=== PATIENT | male | born 1975 | race African-American/Black ===

== ENCOUNTER 2025-03-23 17:37 | Emergency (ER) | payer OTHER, SELFPAY ==
[2025-03-23] VITALS (7 sets, daily range): BP systolic 121–151; BP diastolic 80–101
[2025-03-23 18:11] LABS: % Basophils 0.6 % (0-2); % Eosinophils 0.3 % (0-6); % Lymphocytes 43.6 % (20.5-51.1); % Monocytes 4.6 % (1.7-9.3); % Neutrophils 50.9 % (42.2-75.2); Absolute Lymphocytes 1.5 10^3/uL (1.2-3.4); Absolute Monocytes 0.2 10^3/uL (0.1-0.6); Absolute Neutrophils 1.8 10^3/uL (1.4-6.5); Hematocrit 40.3 % (39.0-52.0); Hemoglobin 14.4 g/dL (13.0-18.0); Mean Corp Hgb Conc. 35.7 g/dL (33.0-37.0); Mean Corpuscular Hgb 34.2 pg (27.0-31.0); Mean Corpuscular Volume 95.7 fL (80.0-94.0); Nucleated Red Blood Cells % 0 % (-); Red Blood Cell Count 4.21 10^6/uL (4.70-6.10); Red Cell Dist. Width 11.5 % (11.5-14.5); White Blood Cell Count 3.5 10^3/uL (4.8-10.8)
[2025-03-23 18:29] LABS: Troponin I 0.015 ng/ml
[2025-03-23 18:34] LABS: ALT (SGPT) 107 U/L (0-50); AST (SGOT) 501 U/L (17-59); Albumin 5.3 g/dl (3.5-5.0); Alkaline Phosphatase 89 U/L (38-126); Blood Urea Nitrogen 22 mg/dl (9-20); Calcium 9.1 mg/dl (8.4-10.2); Carbon Dioxide 19 mmol/L (22-30); Chloride 101 mmol/L (98-107); Glucose 168 mg/dl (70-99); Potassium 4.8 mmol/L (3.5-5.1); Sodium 138 mmol/L (135-145); Total Bilirubin 0.7 mg/dl (0.2-1.3); Total Protein 8.2 g/dl (6.3-8.2); eGFR > 60.00
[2025-03-23 18:40] LABS: Mean Platelet Volume 10.9 fL (7.4-10.4); Platelet Count 78 10^3/uL (130-400)
--- NOTE | 2025-03-23 18:54 | ED.GENMED ---
History of Present Illness
General
Chief Complaint: Fainting Sensation
Source: patient
Exam Limitations: none
Time Seen by Provider: 03/23/25 18:33
Nursing documentation reviewed up to this point in time: agreed with except (Triage note mentions difficulty catching his breath-denies dyspnea to me)
History of Present Illness
History of Present Illness:
49-year-old male with past medical history of alcohol use who presents to the emergency department he says for evaluation of suicidality. Initially patient presented to triage saying that he was feeling very lightheaded�during my initial assessment
he said that he was feeling 'dizzy' and then asked his family/significant other to step out of the room. Upon their exiting the room he told me that he came to the emergency room today because he is been having issues in his personal life that have
made him very depressed and that he no longer wants to live. He denies any suicide attempts. He says he has been drinking heavily because of his personal issues, last drink was around 10 AM today. He says he drinks 'a lot' of beer daily. He does
report feeling mild lightheadedness but says this is not his primary reason for coming to the ER. He also reports fatigue, mild headache.
Past History
Past History
ED Past Medical History: None
ED Past Surgical History: None
Social History
Tobacco: Non-smoker
Alcohol: Occasional
Drug: None
Personal:
Living: with family
Review of Systems
Review of Systems
All Other Systems: ROS reviewed and negative except as documented in HPI and ROS
Constitutional: Reports fatigue; Denies fever
Respiratory: Denies trouble breathing
Cardiac: Denies chest pain
ABD/GI: Reports nausea; Denies abdominal pain or vomiting
: Denies flank pain
Musculoskeletal: Reports muscle pain
Neurological: Reports dizzy and headache
Phy Exam
Physical Exam
Physical Exam:
General: Awake, alert, oriented x3; no acute distress
Head: Normocephalic, atraumatic
Eyes: Conjunctiva normal, EOMI, pupils equal round reactive to light bilaterally, sclera anicteric
Throat: Airway intact, somewhat dry mucous membranes
Neck: Trachea midline, supple without meningismus
Lungs: Clear to auscultation bilaterally, no wheezing, rales, rhonchi
Heart: Tachycardia with regular rhythm, no murmurs, gallops, or rubs
Abd: Soft, non distended, nontender
Neuro: Cranial nerves grossly intact,, motor and sensory intact in the extremities
Skin: no rash
Extremities: No edema in extremities, equal pulses in all extremities
Psych: Depressed mood, withdrawn affect
Scores
Heart Failure Risk
Heart Failure Risk Score: Not Applicable
Heart Score for Chest Pain Patients
STEMI patient?: Not applicable
Withdrawal Assessment of Alcohol
Withdrawal Assessment Completed?: Yes
Nausea and Vomiting: Mild nausea with no vomiting
Tactile Disturbances: None
Tremor: No tremor
Auditory Disturbances: Not present
Paroxysmal Sweats: No sweat visible
Visual Disturbances: Not present
Anxiety: Moderately anxious, or guarded, so anxiety is inferred
Headache, Fullness in Head: Mild
Agitation: Normal activity
Orientation and clouding of sensorium: Cannot do serial additions or is uncertain about date
Total CIWA Score: 8
Alcohol Withdrawal Medication Recommendation: Equal to MSAS Score 5-7. Lorazepam 1mg IV or PO NOW & re-assess q2hrs
Course
Orders/Labs/Results
Orders:
Orders
03/23/25 17:42
Electrocardiogram (*1) Urgent
Reason for Study: Other
Other Reason for Exam: near syncope
EKG- Treatment ONCE
03/23/25 17:44
Acetaminophen Urgent
Comment: ADD ON
Alcohol Urgent
Complete Blood Count/With Diff Urgent
Comprehensive Metabolic Panel Urgent
Lipase Urgent
Comment: ADD ON
Salicylate Urgent
Comment: ADD ON
Troponin I Urgent
03/23/25 18:45
Add On- LAB Urgent
Tests Added?: ETOH level
Crisis Consult Routine
Reason for Consult: SI
03/23/25 18:46
0.9% Sodium Chloride 1000 ml [Nss] 1,000 ml IV BOLUS
03/23/25 19:04
Lorazepam [Ativan] 0.5 mg IV NOW STA
Thiamine Injection 100 mg IV NOW STA
03/23/25 20:00
FOLic ACID [Folvite] 1 mg 0.9% Sodium Chloride 50 ml [Nss] 50 ml IV ONCE
03/23/25 20:24
Drug Screen, Urine [Urine Drug Abuse Screen] Urgent
Date Specimen was Collected: 03/23/25
Time Specimen was Collected: 20:11
03/23/25 20:45
0.9% Sodium Chloride 1000 ml [Nss] 1,000 ml IV 125 mls/hr
03/23/25 23:44
Alcohol Urgent
Abnormal Lab Results
03/23/25
17:44
WBC 3.5 L 10^3/uL
(4.8-10.8)
RBC 4.21 L 10^6/uL
(4.70-6.10)
MCV 95.7 H fL
(80.0-94.0)
MCH 34.2 H pg
(27.0-31.0)
Plt Count 78 L 10^3/uL
(130-400)
MPV 10.9 H fL
(7.4-10.4)
Carbon Dioxide 19 L mmol/L
(22-30)
BUN 22 H mg/dl
(9-20)
Glucose 168 H mg/dl
(70-99)
AST 501 H* U/L
(17-59)
ALT 107 H U/L
(0-50)
Albumin 5.3 H g/dl
(3.5-5.0)
Salicylates < 1.0 L mg/dl
(2.0-20.0)
Acetaminophen < 10 L ug/ml
(10-30)
Alcohol, Quantitative 442 H* mg/dl
03/23/25 17:44
03/23/25 17:44
Vital Signs
Initial and Last Documented VS:
Initial Vital Signs
Temp Pulse Resp BP Pulse Ox
36.9 C 116 18 151/101 97
03/23/25 17:38 03/23/25 17:38 03/23/25 17:38 03/23/25 17:38 03/23/25 17:38
Last Documented Vital Signs
Temp Pulse Resp BP Pulse Ox
36.9 C 102 19 135/86 97
03/23/25 17:38 03/23/25 23:00 03/23/25 23:00 03/23/25 23:00 03/23/25 22:15
MDM/Problems Addressed
Differential Diagnosis Includes:
Mental health complaints: Alcohol use disorder, depression
Dizziness/headache/fatigue: Alcohol withdrawal, dehydration, electrolyte derangement
MDM/Problems Addressed:
49-year-old male presents for evaluation of depression and suicidality, heavy alcohol use; he also reports various physical complaints as described. He is tachycardic and hypertensive. Physical exam as above. Labs were sent in triage including a
CBC which shows thrombocytopenia which is chronic and stable. His CMP shows mild metabolic acidosis, stable creatinine 1.3. Stable transaminitis with AST greater than ALT. Negative troponin. EKG shows sinus tachycardia. Add lipase,
Tylenol/salicylate levels, alcohol level, UDS. Will provide fluids, thiamine/folate, Ativan for mild withdrawal. Case discussed with crisis for evaluation.
Crisis interviewed patient�he is describing more of a passive wish rather than active suicidality. He prefers to pursue outpatient treatment of his psychiatric issues and was provided resources. He was offered resources for substance abuse
but declined. Fluids in progress, patient feeling a bit better after medications as above�continue to monitor.
Tylenol salicylate was negative. Alcohol level was 442. UDS negative. Patient resting comfortably on reassessment. Suspect initial presentation was more likely alcohol intoxication, will continue to monitor here.
Patient feeling much better after fluids and ED observation. Check repeat labs. I did speak to him once again about potentially alcohol rehab but he does not wish to pursue at this time. Alcohol level still high and patient not able to get a ride
home until the morning�will continue to monitor overnight plan for discharge in the morning.
Chronic conditions affecting care:
Alcohol use
Acute Exacerbation and/or Progression of Chronic Illness:
Acutely hypertensive�suspect related to alcohol withdrawal; will treat alcohol withdrawal
Acute Exacerbation and/or Progression of Chronic Illness: HTN
*Pulse Oximetry
Patient hypoxic: no
*EKG
Interpreted by ED Provider?: Yes
Heart Rate: 91
Rate: normal
Rhythm: sinus
[place]: normal axis
Interval: normal interval
QRS Pattern: left vent hypertrophy
Ischemia: no ischemia
*Critical Care Note
Total Time (30-74mins, 75-104mins- exclusive of procedures): Not Applicable
Data Reviewed
Review of Other/Old Records Reveals: Labs and Records
Source: patient
Patient Management
Discussion with other providers: Other (Discussed with crisis staff)
ED Attending Note
-
Portions of this chart may have been created with voice recognition software.� Occasional wrong word or��sound alike� substitutions may have occurred due to the inherent limitations of voice recognition software.
Discharge Plan
Departure
Patient with high blood pressure during this ER visit?: Yes
Discharge Problem:
Alcohol intoxication
Instructions: Alcohol use disorder - ED discharge instructions
Prescriptions:
No Action
No Current Medications
0
Referrals:
Jaydon Javier MD [Primary Care Provider, Cardiology]
UNKNOWN - PT DOES,NOT KNOW [Unknown Provider]
Activity Restrictions/Additional Instructions:
Thank you for visiting the Emergency Department at [facility].
1. Please schedule a follow up appointment as directed. Call first thing tomorrow morning to make an appointment.
2. If indicated, please take your medications as instructed and indicated on discharge paperwork.
3. If any of your symptoms do not improve, or persist, or become more severe within 6-12 hours, please return to the emergency department for further care.
4. Please return to the emergency department if you develop a headache, neck pain/stiffness, fever greater than 100.4F, chest pain, shortness of breath, persistent nausea, vomiting, slurred speech, difficulty walking, numbness/tingling, weakness,
signs of infection or any other symptoms that are worrisome to you.
Please call [phone] if you have any questions.
Interventions
Interventions:
*Risk Screen - Suicide Last Done: 03/23/25 17:38
*General Assessment Last Done: 03/23/25 17:38
*Neglect/Abuse Screening Last Done: 03/23/25 17:38
*ED- Fall Risk Assessment Last Done: 03/23/25 18:53
*ED COVID-19 Vaccine History Last Done: 03/23/25 18:53
ED- Cardiac Assessment Last Done: 03/23/25 23:00
ED- Neurological Assessment Last Done: 03/23/25 23:00
Discharge Date and Time
Print Language: NEPALI
[2025-03-23] MEDS: NSS 1000 IV ×2 (19:00→20:40)
[2025-03-23] MEDS: THIAMINE INJECTION 100 MG IV (19:12)
[2025-03-23] MEDS: ATIVAN 0.5 MG IV (19:13)
[2025-03-23] MEDS: FOLVITE 50.2 MG IV (19:24)
[2025-03-23 20:13] LABS: Acetaminophen < 10 ug/ml (10-30); Alcohol 442 mg/dl; Lipase 71 U/L (23-300); Salicylate < 1.0 mg/dl (2.0-20.0)
[2025-03-23 20:45] LABS: Amphetamines Negative (Negative); Barbiturates Negative (Negative); Benzodiazepines Negative (Negative); Buprenorphine Negative (Negative); Cocaine Negative (Negative); Marijuana Negative (Negative); Methadone Negative (Negative); Methamphetamines Negative (Negative); Opiates Negative (Negative); Phencyclidine Negative (Negative); Tricyclic Antidepressants Negative (Negative)
--- NOTE | 2025-03-23 23:09 | EDRN ---
Pt says he had 6 falls to today but clarified one of them was down the stairs. The other 5 'falls' were pt leaning on the wall for support. Pt says he did not fall to the ground in the other 5 falls. Pt with hx chronic back pain for which he says
he is going to his doctor this week. Pt denies injury from fall down the stairs. Pt admits to drinking 2-3 beers daily. Pt says he only had 1 beer this morning but after further discussion, pt admitted he drank liquor yesterday. Pt has been
drinking more alcohol this past wee due to family problems. Pt denies headache, cp, sob, abd pain, n/v, diaphoresis, SI/HI/AH/VH.
[2025-03-24] VITALS: BP 142/86
[2025-03-24 00:25] LABS: ALT (SGPT) 86 U/L (0-50); AST (SGOT) 393 U/L (17-59); Albumin 4.5 g/dl (3.5-5.0); Alcohol 246 mg/dl; Alkaline Phosphatase 68 U/L (38-126); Blood Urea Nitrogen 18 mg/dl (9-20); Calcium 8.4 mg/dl (8.4-10.2); Carbon Dioxide 21 mmol/L (22-30); Chloride 103 mmol/L (98-107); Estimated Creatinine Clearance 76 ml/min; Glucose 210 mg/dl (70-99); Potassium 4.5 mmol/L (3.5-5.1); Sodium 134 mmol/L (135-145); Total Bilirubin 0.6 mg/dl (0.2-1.3); Total Protein 6.9 g/dl (6.3-8.2); eGFR > 60.00
[2025-03-24 01:10] VITALS: BP 138/83
[2025-03-24] MEDS: NSS 1000 IV (05:07)
[2025-03-24 07:02] VITALS: BP 140/84
== END 2025-03-24 07:11 | disposition home or self-care (01) ==
LOC: EMR 17:37
PROVIDERS: Student in an Organized Health Care Education/Training Program; EMERGENCY PHYSICIAN Emergency Medicine; FAMILY PHYSICIAN Family Medicine; PRIMARYCARE PHYSICIAN Internal Medicine Cardiovascular Disease
DX: F10.129 Alcohol abuse with intoxication, unspecified (principal); Y90.8 Blood alcohol level of 240 mg/100 ml or more; I10 Essential (primary) hypertension; E87.20 Acidosis, unspecified; D69.6 Thrombocytopenia, unspecified; R45.851 Suicidal ideations; F32.A Depression, unspecified
CPT/HCPCS: 96365; 96375; 96361; 99284; 80053; 80143; 80179; 80306; 82077; 83690; 84484; 85025; 93005

== ENCOUNTER 2025-03-26 02:16 | Inpatient (IN) | payer OTHER, SELFPAY ==
[2025-03-25 17:59] VITALS: BP 144/99
[2025-03-25 19:16] VITALS: BP 139/109
[2025-03-25] MEDS: NSS 1000 IV (20:40)
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
[2025-03-25 20:54] LABS: ALT (SGPT) 494 U/L (0-50); Albumin 5.1 g/dl (3.5-5.0); Alkaline Phosphatase 100 U/L (38-126); Blood Urea Nitrogen 17 mg/dl (9-20); Calcium 9.7 mg/dl (8.4-10.2); Carbon Dioxide 22 mmol/L (22-30); Chloride 103 mmol/L (98-107); Glucose 101 mg/dl (70-99); Sodium 136 mmol/L (135-145); Total Bilirubin 2.4 mg/dl (0.2-1.3); Total Protein 7.9 g/dl (6.3-8.2); eGFR > 60.00
[2025-03-25 20:56] LABS: Alcohol None Detected
[2025-03-25 20:58] LABS: % Basophils 0.3 % (0-2); % Eosinophils 0.9 % (0-6); % Immature Granulocytes 0.3 % (0-0.5); % Lymphocytes 15.5 % (20.5-51.1); % Monocytes 5.6 % (1.7-9.3); % Neutrophils 77.4 % (42.2-75.2); Absolute Lymphocytes 0.5 10^3/uL (1.2-3.4); Absolute Monocytes 0.2 10^3/uL (0.1-0.6); Absolute Neutrophils 2.6 10^3/uL (1.4-6.5); Hematocrit 35.3 % (39.0-52.0); Hemoglobin 12.5 g/dL (13.0-18.0); Mean Corp Hgb Conc. 35.4 g/dL (33.0-37.0); Mean Corpuscular Volume 95.9 fL (80.0-94.0); Nucleated Red Blood Cells % 0 % (-); Platelet Count 44 10^3/uL (130-400); Red Blood Cell Count 3.68 10^6/uL (4.70-6.10); Red Cell Dist. Width 11.4 % (11.5-14.5); White Blood Cell Count 3.4 10^3/uL (4.8-10.8)
[2025-03-25 21:18] LABS: AST (SGOT) 3616 U/L (17-59)
[2025-03-25 22:28] LABS: INR 1.37; PT 17.2 Sec (11.4-14.6)
[2025-03-26] VITALS (19 sets, daily range): BP systolic 108–156; BP diastolic 81–102; BMI 18.8
[2025-03-26 00:29] LABS: Lipase 51 U/L (23-300)
[2025-03-26 01:49] LABS: Amphetamines Negative (Negative); Barbiturates Negative (Negative); Benzodiazepines Negative (Negative); Buprenorphine Negative (Negative); Cocaine Negative (Negative); Marijuana Negative (Negative); Methadone Negative (Negative); Methamphetamines Negative (Negative); Opiates Negative (Negative); Phencyclidine Negative (Negative); Tricyclic Antidepressants Negative (Negative)
--- NOTE | 2025-03-26 01:50 | HPS.HSE ---
Family Physician
-
Family Physician: Tamiko Patricia
Chief Complaint
-
Alcohol Problem
History of Present Illness
Patient is a 49y M with PMH significant for alcohol use disorder who presents to ED for evaluation of alcohol related issues. History obtained from patient and ED record. Patient reportedly arrived here with family concerned with his behavior.
Patient states that he usually drinks '2 beers a day'. His last drink was Monday. Family states that patient seemed confused today and complained that 'someone is in the house'. He was brought to the ED for evaluation and possible rehab
enrollment.
Evaluation in the ED revealed multiple lab abnormalities and patient will be admitted for further evaluation / clearance prior to rehab.
Medical History
Past Medical History
Past Medical History: Reports Other
Additional Past Medical History:
Alcohol Use Disorder
Chronic Pancreatitis
Thrombocytopenia
Past Surgical History: Reports Other
Additional Past Surgical History:
Hemorrhoidectomy
Social History
Tobacco: Non-smoker
Alcohol: Occasional (1-2 drinks every 1-2 days reportedly.)
Drug: None
Personal:
Living: With Family
Family History
Family History: Not pertinent
Allergies / Home Medications
Allergies reflects when Allergies were last updated in [employer]
Home Medications with original date entered in [employer]
Allergy/Medication List:
Allergies
Allergy/AdvReac Type Severity Reaction Status Date / Time
No Known Allergies Allergy Verified 03/23/25 17:38
Home Medications
No Meds [No Current Medications] 03/23/25
Review of Systems
-
History Source: Patient
A 12 point ROS was completed and negative except as noted: Yes
Constitutional: Denies Fever or Chills
Respiratory: Denies Cough or Trouble Breathing
Cardiac: Denies Chest Pain or Palpitations
Abdomen/GI: Denies Abdominal Pain, Nausea, Vomiting or Diarrhea
: Denies Dysuria or Frequency
Musculoskeletal: Reports Other (Back pain, R foot pain.)
Neurological: Denies Dizzy or Headache
Physical Exam
Vital Signs
Vital Signs
Temp Pulse Resp BP Pulse Ox
99.1 F 91 16 142/89 100
03/26/25 00:00 03/26/25 00:00 03/26/25 00:00 03/26/25 00:00 03/26/25 00:00
Physical Exam
General: Other (49y M awake and alert.)
HEENT: Other (Dry MM. Neck supple.)
Respiratory: Clear; No Wheezes, Rales or Rhonchi
Cardiac: S1/S2 and Regular Rhythm; No Murmur
GI: Soft, Non Tender, Non Distended and Normal Bowel Sounds
Musculoskeletal: No Clubbing, No Cyanosis and No Edema
Laboratory Results
-
03/25/25 20:16
03/25/25 20:16
Laboratory Results
PT 17.2 Sec (11.4-14.6) H 03/25/25 22:10
INR 1.37 03/25/25 22:10
Total Bilirubin 2.4 mg/dl (0.2-1.3) H D 03/25/25 20:16
AST 3616 U/L (17-59) H* 03/25/25 20:16
ALT 494 U/L (0-50) H 03/25/25 20:16
Alkaline Phosphatase 100 U/L (38-126) 03/25/25 20:16
Lipase 51 U/L (23-300) 03/25/25 20:16
Impression/Plan
-
A/P: Patient is a 49y M with PMH significant for alcohol use disorder who presents to ED for evaluation of recent confusion, hallucinations, etc.
Alcoholic Hepatitis
Alcohol Withdrawal Syndrome
Alcohol Use Disorder
- Admit for further evaluation and treatment.
- Will treat with phenobarbital taper given hallucinations / confusion.
- Suspect that patient is understating his EtOH use.
- IVFs, thiamine, folate, etc.
- BZDs as needed for acute agitation, etc.
- Follow for clinical improvement.
- GI evaluation for additional recommendations.
- Inpatient rehab placement once medically clear for discharge.
Thrombocytopenia
- Progressive thrombocytopenia since 05/2023.
- Likely due to progression of alcoholic liver disease.
- Not on any medications, etc.
- Follow for any evidence of active bleeding.
- Follow cell counts.
DVT Prophylaxis: SCDs
Code Status: Full
[2025-03-26] MEDS: NSS 1000 IV ×3 (03:10→20:05)
--- NOTE | 2025-03-26 03:10 | PTCARENOTE ---
Pt arrived from ED via stretcher and ambulated to bed. Pt is AAOx3, VSS, and current MSAS 4. RN educated on the POC and placed the call riley within reach.
[2025-03-26] MEDS: PHENOBARBITAL 104 MG IV (03:29)
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
[2025-03-26] MEDS: ATIVAN 1 MG IV ×4 (04:35→09:19)
[2025-03-26] MEDS: ATIVAN 1 MG PO ×2 (05:37→11:07)
[2025-03-26 06:31] LABS: INR 1.59; PT 19.2 Sec (11.4-14.6)
[2025-03-26] MEDS: PHENOBARBITAL 97.5 MG IV ×3 (06:46→21:18)
[2025-03-26 06:47] LABS: Hematocrit 32.7 % (39.0-52.0); Hemoglobin 11.5 g/dL (13.0-18.0); Mean Corp Hgb Conc. 35.2 g/dL (33.0-37.0); Mean Corpuscular Hgb 33.9 pg (27.0-31.0); Mean Corpuscular Volume 96.5 fL (80.0-94.0); Mean Platelet Volume 11.7 fL (7.4-10.4); Platelet Count 33 10^3/uL (130-400); Red Blood Cell Count 3.39 10^6/uL (4.70-6.10); Red Cell Dist. Width 11.2 % (11.5-14.5); White Blood Cell Count 2.6 10^3/uL (4.8-10.8)
[2025-03-26 06:57] LABS: ALT (SGPT) 688 U/L (0-50); Albumin 4.4 g/dl (3.5-5.0); Alkaline Phosphatase 92 U/L (38-126); Blood Urea Nitrogen 15 mg/dl (9-20); Calcium 8.8 mg/dl (8.4-10.2); Carbon Dioxide 21 mmol/L (22-30); Chloride 105 mmol/L (98-107); Direct Bilirubin 1.6 mg/dl (0.0-0.4); Estimated Creatinine Clearance 71 ml/min; Glucose 94 mg/dl (70-99); Phosphorus 3.1 mg/dl (2.5-4.5); Sodium 136 mmol/L (135-145); Total Bilirubin 2.4 mg/dl (0.2-1.3); Total Protein 6.8 g/dl (6.3-8.2); eGFR > 60.00
--- NOTE | 2025-03-26 07:17 | W.PN.UPDATE ---
Update Note
Progress Note Update
MSAS 8, 7, 10, HR 140's-150 restless, fidgety vague orientation, Advised RN to give IV Phenobarbital and IV Ativan and transfer to IMU
[2025-03-26 07:22] LABS: TSH Reflex To Free T4 4.15 uIU/ml (0.47-4.68)
[2025-03-26 07:40] LABS: AST (SGOT) 5685 U/L (17-59)
[2025-03-26] MEDS: NSS (PRESERVATIVE FREE) 0.5 ML IV ×2 (08:17→09:19)
[2025-03-26] MEDS: PROTONIX IV 40 MG IV (08:21)
[2025-03-26] MEDS: FOLVITE 1 MG PO (08:22)
[2025-03-26] MEDS: THIAMINE INJECTION 200 MG IV ×2 (08:22→21:18)
[2025-03-26] MEDS: NSS (PRESERVATIVE FREE) 10 ML IV (08:24)
--- NOTE | 2025-03-26 08:45 | PTCARENOTE ---
pt arrived from the 4th floor with maggie SOLOMON, with IVF infusing via right FA #20g protective catheter. He is awake, restless. He is Georgian and speaks Bengali. RN in room speaking Bengali with him states he is aware of where he is and is oriented, then
he stated he can see people in the room who are not present. Hallucinating. He is difficult to redirect such as to slide over onto the bed. He had difficulty understanding those directions. He was informed throughout him being settled onto the unit
about why he is here and what the joseph of care is. He continue to be impulsive and pull monitor leads off as were are placing them onto his chest. He was again instructed that we need to monitor his symptoms of withdrawal that includes his HR, Rhythm
and RR. Bed alarm was turned of for his safety. Call riley within reach. NPO for abdominal Doppler study. entered the room with a large bag of belongings for when he goes to rehab. She was provived the plan of care, why he was escalated to IMU
level of care, and our [facility] protocol for alcohol withdrawal. She was tearful and provided supportive care. Safe environment maintained.
[2025-03-26 08:50] LABS: Glucose - Point of Care 172 mg/dl (70-99)
[2025-03-26] MEDS: MAGNESIUM SULFATE 100 IV (08:50)
[2025-03-26 09:08] LABS: Ammonia < 9 umol/L (9-30)
--- NOTE | 2025-03-26 09:13 | CON.GI ---
Addendum entered and electronically signed by Evette Truong MD 03/26/25 12:19:
I saw and examined the patient.
The RESERVATIONS MANAGER's note was reviewed and I agree with the note.
Comment: This is a 49-year-old male with past medical history of alcohol hepatitis, alcohol use disorder, alcohol pancreatitis, depression, episode of upper GI bleed thought to be related to Simi-Smyth tear versus alcohol gastritis in 2022
presented initially to the ER on 03/23/2025 with alcohol intoxication and said that he was depressed lately and no longer wanted to live but denied any suicidal attempts he was evaluated by crisis and was recommended outpatient treatment and during
that visit on 03/24/2025 he had AST elevation of 393 and ALT of 86 who now presents to the ER last night with altered mental status and was noted to have significantly elevated transaminases now with an AST level of 5685 from today and ALT of 688 with
mildly elevated bilirubin and normal alkaline phosphatase level. His ammonia was negative, his acetaminophen level less than 10 but he apparently had taken 11 pills of 500 mg of Tylenol over the past 2 days per his , salicylate was less than 1.
Ultrasound with Dopplers was unremarkable and ultrasound of the abdomen did not reveal any gallstones and no obvious cirrhosis or liver lesions noted. He also had a abdomen x-ray showed today which showed ileus. He currently is sedated and being
treated for alcohol withdrawal. He did have an endoscopy in 2022 that was normal colonoscopy was poor prep and was recommended to come back unfortunately he never followed up.
Assessment and plan 1. Acute elevation in transaminases most likely related to alcohol hepatitis with also component of shock liver given his decreased oral intake in the last couple of days with dehydration and also recently has had a 20 pound
weight loss and possible chronic Tylenol toxicity . Continue to trend closely his INR is also rising and although his acetaminophen level is less than 10 he had been ingesting Tylenol unclear amount for a few days prior to admission cannot rule out
chronic Tylenol toxicity will continue NAC. DF today is 30.9 will recheck again tomorrow to see if he is a candidate for steroids
Altered mental status secondary to alcohol withdrawal and also encephalopathy related to alcohol hepatitis with decompensation cannot rule out underlying cirrhosis. He also has pancytopenia most likely related to alcohol
Prior history of iron deficiency anemia endoscopy in 2022 was normal colonoscopy poor prep unfortunately he had not followed up
Original Note:
Consultation
-
Date/Time Consultation Requested: 03/26/25239
Date/Time Consultation Performed: 03/26/25 0973
Requesting Provider: Gerald Pro DO
Performing Provider: MELISSA Patel, Evette Truong MD
Reason for Consultation: increased LFT's, confusion
Medical History
Chief Complaint / HPI
Chief Complaint: confusion
History of Present Illness:
Pt is a 49yo with hx depression, ETOH abuse, pancreatitis, fatty liver, hemorrhoidectomy with admission to ER overnight with change in mental status. On admission labs noted with WBC 2.6, hbg 11.5, platelet 44,000, bili 2.4, AST 3616, ALT 494, alk
phos 100 with ammonia <9 and neg tox screen. Us with No evidence of cholelithiasis, gallbladder wall thickening or biliary tract dilatation. No focal hepatic abnormality. Pancreas, abdominal aorta, IVC and left kidney significantly obscured, at
least in part due to overlying bowel gas.
Leading up to admission Pt had back injury at work and has not worked for 2 weeks. she admits to hx ETOH abuse with sobiety for some period but then recent increased use. Some day 3 beers and other daily 750ml bottle of hard ETOH consumed over
2 days. Pt was noted with ETOH level 246 on 03/24. reports pt was noted with dizziness several days ago. He was in ER 03/23 with concern for depression and suicidality with crisis eval with plan for Op treatment. At that time salicylate level
was <1 and pt was discharged. Per after discharged noted with hallucination and went to PCP then sent back to ER. He was noted with continued confusion after admission and now transferred to ICU for further care. also concerned in
review on medication pt may have taken 11 500mg tablets of Tylenol over 2 days.
Pt unable to give much history with confusion. Per family no nausea, vomiting, abdominal pain, or noted bleeding. + recent 20 lb wt loss with decreased appetite and now sleeping well. Hx EGD 2022 with normal finding and limited colon with
poor prep.
Past Medical History
Past Medical History: Psychiatric (depression, ETOH abuse) and Other (fatty liver, anemia, thrombocytopenia, pancreatitis )
Past Surgical History: Other (hemorrhoidectomy)
Social History
Tobacco: Non-Smoker
Alcohol: Daily (recent increased amount prior to monday )
Drug: None
Personal:
Living: With Family
Employment: Employed (+ back injury and out of work for 2 weeks )
Family History
Family History: Other (no family hx ETOH or liver problems)
Allergies / Home Medications
Allergy/AdvReac Type Severity Reaction Status Date / Time
No Known Allergies Allergy Verified 03/23/25 17:38
�Medication �Instructions �Recorded
No Meds [No Current Medications] 03/23/25
Review of Systems
-
Unable to obtain full review of systems at this time due to: Other (confusion/hallunications)
History Source: Patient and Family
Constitutional: Reports Weight Loss (wt 170 normal now 153 lbs ) and Other (shakiness )
EENT: Reports No Symptoms
Respiratory: Reports No Symptoms
Cardiac: Reports No Symptoms
Abdomen/GI: Reports No Symptoms
: Reports No Symptoms
Musculoskeletal: Reports No Symptoms
Neurological: Reports Dizzy and Weakness
Endocrine: Reports No Symptoms
Hematologic/Lymphatic: Reports No Symptoms
Vital Signs
Temp Pulse Resp BP Pulse Ox
97.4 F 112 18 134/99 97
03/26/25 08:52 03/26/25 08:23 03/26/25 08:23 03/26/25 08:23 03/26/25 08:57
Physical Exam
Exam
General: Other (pt with confusion and hallucination, some difficulty with walking to stretcher with need for 2 assist )
HEENT: Normocephalic
Respiratory: Clear
Cardiac: Other (tachy)
GI: Soft, Non Tender and Distended (mild)
Musculoskeletal: No Clubbing and No Cyanosis
Skin: Warm and Dry
Neuro: Other (confused with difficulty answering questions )
Psych: Agitated (trying to climb out of bed )
Results
WBC 2.6 10^3/uL (4.8-10.8) L 03/26/25 05:20
Hgb 11.5 g/dL (13.0-18.0) L 03/26/25 05:20
Hct 32.7 % (39.0-52.0) L 03/26/25 05:20
MCV 96.5 fL (80.0-94.0) H 03/26/25 05:20
Plt Count 33 10^3/uL (130-400) L D 03/26/25 05:20
Absolute Neuts (auto) 2.6 10^3/uL (1.4-6.5) 03/25/25 20:16
PT 19.2 Sec (11.4-14.6) H 03/26/25 05:20
INR 1.59 03/26/25 05:20
Sodium 136 mmol/L (135-145) 03/26/25 05:20
Potassium 4.0 mmol/L (3.5-5.1) 03/26/25 05:20
Chloride 105 mmol/L (98-107) 03/26/25 05:20
Carbon Dioxide 21 mmol/L (22-30) L 03/26/25 05:20
BUN 15 mg/dl (9-20) 03/26/25 05:20
Creatinine 1.2 mg/dL (0.7-1.3) 03/26/25 05:20
Calcium 8.8 mg/dl (8.4-10.2) 03/26/25 05:20
Total Bilirubin 2.4 mg/dl (0.2-1.3) H 03/26/25 05:20
AST 5685 U/L (17-59) H* 03/26/25 05:20
ALT 688 U/L (0-50) H* 03/26/25 05:20
Alkaline Phosphatase 92 U/L (38-126) 03/26/25 05:20
Lipase 51 U/L (23-300) 03/25/25 20:16
Diagnostic Image Results:
03/25/25 US abdomen
No evidence of cholelithiasis, gallbladder wall thickening or biliary tract dilatation.
No focal hepatic abnormality.
Pancreas, abdominal aorta, IVC and left kidney significantly obscured, at least in part due to overlying bowel gas.
Prior GI Procedures:
EGD: 07/2023 for RAJENDRA, GERd, ? coffee ground emesis - Normal esophagus.
- Normal stomach.
- Normal examined duodenum.
- No specimens collected
Colonoscopy: 07/2023- - The procedure was aborted due to poor bowel prep.
- Stool in the descending colon and in the transverse
colon.
- No specimens collected.
recommended repeat
Assessment / Plan
-
Pt is a 49yo with hx depression, ETOH abuse, pancreatitis, fatty liver, hemorrhoidectomy with admission to ER overnight with change in mental status. On admission labs noted with WBC 2.6, hbg 11.5, platelet 44,000, bili 2.4, AST 3616, ALT 494, alk
phos 100 with ammonia <9 and neg tox screen. Us with No evidence of cholelithiasis, gallbladder wall thickening or biliary tract dilatation. No focal hepatic abnormality. Pancreas, abdominal aorta, IVC and left kidney significantly obscured, at
least in part due to overlying bowel gas. Leading up to admission Pt had back injury at work and has not worked for 2 weeks. she admits to hx ETOH abuse with sobriety for some period but then recent increased use. Some day 3 beers and other daily
750ml bottle of hard ETOH consumed over 2 days. Pt was noted with ETOH level 246 on 03/24. reports pt was noted with dizziness several days ago. He was in ER 03/23 with concern for depression and suicidality with crisis eval with plan for Op
treatment. At that time salicylate level was <1 and pt was discharged. Per after discharged noted with hallucination and went to PCP then sent back to ER. also concerned in review on medication pt may have taken 11 500mg tablets of
Tylenol over 2 days. He was noted with continued confusion after admission and now transferred to ICU for further care.
-change in mental status with concern for ETOH withdrawal
-recent ingestion of increased Tylenol
-dizziness with marked elevated LFT's - possible shock liver
-coagulopathy
-thrombocytopenia with pancytopenia
-severe hypomagnesemia
-abdominal distention on exam
-recent suicidal evaluation in Crisis 03/23
-similar admission 2022 with ETOH withdrawal
-recent wt loss
other med problems:
-pancreatitis
-hemorrhoidectomy
-fatty liver
PLAN:
Etiology of confusion related to ETOH withdrawal
also concern for ETOH hepatitis and Tylenol overdose and possible shock liver with dizziness and marked elevated transaminases
will add NAC protocol with concern for increased Tylenol ingestion prior to admission
add salicylate and Tylenol level
add blood and urine culture to rule out infection
DF 30.9 with control on 13 today close trend of labs will repeat LFT and INR at 1600
US doppler pending
replete Mag per medical team
check bedside abd film with some distention on exam-- may need CT
monitor for ETOH withdrawal
cont thiamine and folate
reviewed with Dr. Pascal and nursing staff
updated
-
-
Thank you for consultation and allowing me to participate in the patient's care. Please call the public relations supervisor GI physician during the after hours with any questions or concerns.
--- NOTE | 2025-03-26 10:27 | W.PN.HOSP.TC ---
Today's Communication/Plan
-
Head CT
Check ammonia
Follow LFTs
Add Tylenol levels to admission labs
Hepatitis panel
GI evaluation
Alcohol withdrawal protocol
Assessment / Plan
Assessment / Plan
49-year-old male with alcohol use disorder presented for alcohol-related symptoms. Patient was confused and family brought him in
Per discussion with everything Started Monday, he was feeling dizzy and felt he was going to pass out. Not able to focus. Walking into the [place]. She brought him to the ER when she stepped out of the room patient told ER physician that he was
having
suicidal thoughts. He was seen by crisis where he was describing more of a passive wish rather than active suicidality. Patient preferred to pursue outpatient treatment he was offered resources. Alcohol level was 442 at that time. He was
discharged
Yesterday he called at work and said there was a aston in the apartment. She called 911. Police came and searched apt and there was no one there.
also states that he has not slept fot 3-4 days. Took Tylenol PM still didn't sleep.
[place] there were people in the room and stuff on the wall.
She Called PCP who told to take pt to ER
Patient drinks every day. Some days he drinks beers some days whiskey. stated that he started drinking at age 24. She is not able to quantify much but thinks is an 50 mL bottle of whiskey last 2 days.
When asked how much Tylenol he takes she stated that about 11 extra strength.
Colonoscopy July 2023-procedure aborted secondary to stool
Endoscopy July 2023-normal esophagus, stomach, duodenum
On examination patient is awake and mumbling would not answer questions properly
Cardiovascular system S1-S2 appreciated
Chest clear to auscultation
Abdomen soft and nontender
No pedal edema
Not really cooperative for neuroexam however no facial droop noted good strength
# Alcohol use disorder
Alcohol withdrawal syndrome
Started on phenobarbital taper
MSAS 10
Continue thiamine and folic acid
MSAS protocol with as needed Benzos
Consider inpatient rehab-case management consult
# Elevated LFTS
INR 1.59
Possible alcohol hepatitis
With Tylenol intake-added on Tylenol levels to admission labs
But numbers are really high for alcoholic hepatitis suggest ischemia related liver injury
No hypotension noted
Check hepatitis panel, ammonia level
Doppler-no thrombosis noted
GI evaluation requested
# Mental status change-confusion
Possible secondary to alcohol use disorder
Check head CT with low platelets and alcohol use
Check ammonia level
Check EEG
# Thrombocytopenia-likely secondary to above
Progressive thrombocytopenia since 2022
states that since his admission in 2022 he had followed up with PCP and has platelet counts did normalize at 1 point.
Follow counts
# Hypomagnesemia-replace
# Chronic pancreatitis
# Hepatic steatosis
# DVT prophylaxis-SCDs
# Full code
Discussed with nursing at bedside
Discussed with on the phone and updated
Time spent more than 50 minutes
Part of this note was created using voice recognition system. Occasional wrong word or��sound alike� substitutions may have inadvertently occurred due to the inherent limitations of voice recognition software. If noted kindly bring it to my
attention for correction.
Anticipated Discharge: > 48 hours
Subjective/Interval History
-
Date of Service: March 26, 2025
Objective Data
-
Labs:
Laboratory Results
03/25/25 03/26/25
22:10 05:20
WBC 2.6 L
Hgb 11.5 L
Hct 32.7 L
Plt Count 33 L D
PT 17.2 H 19.2 H
INR 1.37 1.59
Sodium 136
Potassium 4.0
Chloride 105
Carbon Dioxide 21 L
BUN 15
Creatinine 1.2
Glucose 94
Calcium 8.8
Total Bilirubin 2.4 H
AST 5685 H*
ALT 688 H*
Alkaline Phosphatase 92
Vital Signs:
Vital Signs
Temp Pulse Resp BP Pulse Ox
97.4 F 112 18 134/99 97
03/26/25 08:52 03/26/25 08:23 03/26/25 08:23 03/26/25 08:23 03/26/25 08:57
I&O
03/25/25 03/26/25 03/27/25
06:59 06:59 06:59
Intake Total 1240 / 1240 275 / 275
Output Total 400 / 400
Balance 840 / 840 275 / 275
[2025-03-26] MEDS: ACETADOTE 251.1 MG IV (10:48)
--- NOTE | 2025-03-26 11:08 | PTCARENOTE ---
MSAS 5. PO Lorazepam 1mg administered per protocol. It was difficult getting him to swallow the pill. He remains impulsive nd difficult to redirect. Speaking Taiwanese with his eyes closed. licensed psychiatric technician at the bedside. He was informed of the plan of
care. Safe environment maintained.
[2025-03-26 11:28] LABS: Acetaminophen < 10 ug/ml (10-30); Salicylate < 1.0 mg/dl (2.0-20.0)
[2025-03-26] MEDS: ACETADOTE 517 MG IV (12:00)
[2025-03-26 12:21] LABS: Urine Albumin 2+ (Neg - Trace); Urine Bilirubin Negative (Negative); Urine Character Clear (Clear); Urine Color Yellow; Urine Glucose Negative (Negative); Urine Ketone Negative (Negative); Urine Leukocyte Negative (Negative); Urine Nitrite Negative (Negative); Urine Occult Blood 3+ (Negative); Urine Specific Gravity 1.015 (<1.030); Urine Urobilinogen 1+ (Neg - 1+)
--- NOTE | 2025-03-26 12:35 | PTCARENOTE ---
Clarified with care team regarding diet. Currently he is NPO. Passing flatus.
--- NOTE | 2025-03-26 13:02 | EEG.RPT ---
Electroencephalogram Report
Recording
Date of EE03/26/25
Type of EEG: Routine
Length of EEG recordin minutes
Done with Video Recording: Yes
Patient Status: Inpatient
Recording Conditions: Awake, Drowsy and Asleep
Hyperventilation Performed: No
Photic Stimulation Performed: Yes
Report
LESS THAN 1 HOUR EEG REPORT
LESS THAN 1 HOUR EEG INTERPRETATION:
Unremarkable EEG for age
CLINICAL CORRELATION:
A normal EEG does not rule out a diagnosis of epilepsy. If clinical suspicion for seizure persists, a prolonged recording may be warranted.
Clinical correlation is advised.
METHODS:
A 21 channel digitized electroencephalogram (EEG) was performed using the 10/20 international system of electrode placement and one-lead of ECG recorded. Video was recorded. Persyst quantitative EEG analysis was performed.
ELECTROENCEPHALOGRAPHER IMPRESSION(S):
Quality of study
Good
Background
There was an unremarkable anterior-posterior voltage gradient of alpha frequency.
With eye opening the background activity changed to a low voltage mixture of frequencies.
There were no significant asymmetries of background activity noted.
Sleep
Drowsiness present
Stage I present
Stage 2 present
Photic Stimulation
No driving
ECG
Normal sinus rhythm
[2025-03-26 13:27] LABS: Urine Bacteria Few (Negative); Urine Red Blood Cell 0-2 /HPF (0-2); Urine White Cell 0-2 /HPF (0-5)
--- NOTE | 2025-03-26 13:37 | CM ---
Attempted initial assessment twice. Initially, patient was sleeping soundly and not arousable to calling name or touch. Attempted again at this time and patient is off floor.
--- NOTE | 2025-03-26 13:45 | PTCARENOTE ---
Tolerate CT scan of his head. He was incontinent of bladder upon return to his room . The condom catheter had fallen off. He was provided michel care and #30 condom catheter placed.
[2025-03-26 16:21] LABS: INR 1.76
[2025-03-26 16:24] LABS: Albumin 3.7 g/dl (3.5-5.0); Alkaline Phosphatase 42 U/L (38-126); Total Bilirubin 1.7 mg/dl (0.2-1.3)
[2025-03-26] MEDS: ACETADOTE 1034.1 MG IV (16:39)
[2025-03-26 16:59] LABS: ALT (SGPT) 856 U/L (0-50); AST (SGOT) 6401 U/L (17-59); Magnesium 2.1 mg/dl (1.6-2.3)
--- NOTE | 2025-03-26 17:11 | PTCARENOTE ---
Notified the care team regarding recent lab results with worsening AST/ALT. With mixing picker tender he is at times appropriate, he thinks he is in a hotel.
--- NOTE | 2025-03-26 18:58 | PTCARENOTE ---
Updated his Tammy over the phone. Supportive care provided.
[2025-03-27] VITALS (15 sets, daily range): BP systolic 105–136; BP diastolic 71–104; BMI 19.0
--- NOTE | 2025-03-27 03:20 | PTCARENOTE ---
Pt received at 19:00, initial assessment as documented. Pt Ox1-2 drowsy, forgetful, and intermittent increased confusion. Restless at times but remains cooperative, able to redirect and reorient. Safe environment maintained, call riley within reach,
pt repositioning self.
[2025-03-27] MEDS: NSS 1000 IV (03:52)
[2025-03-27 04:38] LABS: INR 1.73; PT 20.7 Sec (11.4-14.6)
[2025-03-27 04:43] LABS: Albumin 3.4 g/dl (3.5-5.0); Alkaline Phosphatase 68 U/L (38-126); Blood Urea Nitrogen 9 mg/dl (9-20); Calcium 8.4 mg/dl (8.4-10.2); Carbon Dioxide 24 mmol/L (22-30); Chloride 104 mmol/L (98-107); Estimated Creatinine Clearance 85 ml/min; Glucose 85 mg/dl (70-99); Magnesium 1.5 mg/dl (1.6-2.3); Potassium 3.6 mmol/L (3.5-5.1); Sodium 132 mmol/L (135-145); Total Bilirubin 1.8 mg/dl (0.2-1.3); Total Protein 5.9 g/dl (6.3-8.2); eGFR > 60.00
[2025-03-27 04:46] LABS: % Eosinophils 2.9 % (0-6); % Immature Granulocytes 0.4 % (0-0.5); % Lymphocytes 16.8 % (20.5-51.1); % Monocytes 6.1 % (1.7-9.3); % Neutrophils 73.8 % (42.2-75.2); Absolute Eosinophils 0.1 10^3/uL (0-0.7); Absolute Lymphocytes 0.5 10^3/uL (1.2-3.4); Absolute Monocytes 0.2 10^3/uL (0.1-0.6); Absolute Neutrophils 2.1 10^3/uL (1.4-6.5); Hemoglobin 10.8 g/dL (13.0-18.0); Mean Corpuscular Hgb 34.2 pg (27.0-31.0); Mean Corpuscular Volume 94.9 fL (80.0-94.0); Mean Platelet Volume 12.2 fL (7.4-10.4); Nucleated Red Blood Cells % 0 % (-); Platelet Count 33 10^3/uL (130-400); Red Blood Cell Count 3.16 10^6/uL (4.70-6.10); Red Cell Dist. Width 11.2 % (11.5-14.5); White Blood Cell Count 2.8 10^3/uL (4.8-10.8)
[2025-03-27 04:52] LABS: ALT (SGPT) 983 U/L (0-50)
[2025-03-27 05:13] LABS: AST (SGOT) 5383 U/L (17-59)
--- NOTE | 2025-03-27 05:53 | PTCARENOTE ---
Offered AM care/bath, pt declined at this time. States that he is tired and wants to sleep.
--- NOTE | 2025-03-27 07:15 | PTCARENOTE ---
Pt's Tammy called for an update. Pt had an uneventful night. Continuing to monitor liver enzymes, hydrate, and possible ambulate today. She will visit after work.
--- NOTE | 2025-03-27 07:45 | PTCARENOTE ---
Pt sitting up in bed. tolerating a clear liquid diet. He is conversive. He does not recall the events from yesterday or that his visited him in the morning. He was informed of why he is in the hospital. He is aware he was having symptoms of
alcohol withdrawal and required closer monitoring of his symptoms due to his mental status at that time. Left fa #22g protective catheter with Acetadote as ordered, right FA with 0.9nss@125 ml/hr. Good peripheral pulses, no edema. Lungs dim in the
bases however poor inspiratory effort. He was instructed to take deeper breaths which he did. Lungs are CTA. +BSx4. Safe environment maintained. Supportive care provided.
[2025-03-27] MEDS: THIAMINE INJECTION 200 MG IV ×2 (08:49→21:52)
[2025-03-27] MEDS: PHENOBARBITAL 97.5 MG IV ×3 (08:50→21:53)
[2025-03-27] MEDS: NSS (PRESERVATIVE FREE) 10 ML IV (08:52)
[2025-03-27] MEDS: PROTONIX IV 40 MG IV (08:52)
[2025-03-27] MEDS: FOLVITE 1 MG PO (08:53)
--- NOTE | 2025-03-27 09:11 | W.PN.GI.CBS2 ---
Today's Communication / Plan
-
Advance diet
Continue to monitor LFTs and INR closely
Mentation is now at baseline encephalopathy seems to have resolved and withdrawal is much improved
Advised strict alcohol abstinence
Patient is willing for inpatient alcohol rehab
Assessment / Plan
-
Pt is a 49yo with hx depression, ETOH abuse, pancreatitis, fatty liver, hemorrhoidectomy with admission to ER overnight with change in mental status. On admission labs noted with WBC 2.6, hbg 11.5, platelet 44,000, bili 2.4, AST 3616, ALT 494, alk
phos 100 with ammonia <9 and neg tox screen. Us with No evidence of cholelithiasis, gallbladder wall thickening or biliary tract dilatation. No focal hepatic abnormality. Pancreas, abdominal aorta, IVC and left kidney significantly obscured, at
least in part due to overlying bowel gas. Leading up to admission Pt had back injury at work and has not worked for 2 weeks. she admits to hx ETOH abuse with sobriety for some period but then recent increased use. Some day 3 beers and other daily
750ml bottle of hard ETOH consumed over 2 days. Pt was noted with ETOH level 246 on 03/24. reports pt was noted with dizziness several days ago. He was in ER 03/23 with concern for depression and suicidality with crisis eval with plan for Op
treatment. At that time salicylate level was <1 and pt was discharged. Per after discharged noted with hallucination and went to PCP then sent back to ER. also concerned in review on medication pt may have taken 11 500mg tablets of
Tylenol over 2 days. He was noted with continued confusion after admission and now transferred to ICU for further care.
-change in mental status with concern for ETOH withdrawal
-recent ingestion of increased Tylenol
-dizziness with marked elevated LFT's - possible shock liver
-coagulopathy
-thrombocytopenia with pancytopenia
-severe hypomagnesemia
-abdominal distention on exam
-recent suicidal evaluation in Crisis 03/23
-similar admission 2022 with ETOH withdrawal
-recent wt loss
other med problems:
-pancreatitis
-hemorrhoidectomy
-fatty liver
PLAN:
Etiology of confusion related to ETOH withdrawal and alcohol hepatitis with encephalopathy
Mentation is improved and he is at baseline
Abnormal LFTs likely from ETOH hepatitis and possible chronic Tylenol toxicity and possible shock liver
Slowly trending down
cannot rule out underlying ETOH cirrhosis given thrombocytopenia
He also has pancytopenia most likely related to alcohol
Although DF today is 37 will hold off on prednisolone for now since etiology of abnormal LFTs is multifactorial
Continue NAC till done
On alcohol withdrawal prophylaxis also continue thiamine and folic acid
Will advance diet
Advised strict alcohol abstinence
Patient is willing for inpatient alcohol rehab
Closely follow LFTs and INR
Prior history of iron deficiency anemia endoscopy in 2022 was normal colonoscopy poor prep unfortunately he had not followed up
Subjective
Subjective
Date of Service: March 27, 2025
patient much more awake today awake alert and oriented x 3
denies any abdominal pain
Tolerating clear liquids
Afebrile
Objective
Data Reviewed
Laboratory Data:
Laboratory Results
03/27/25 03:51
03/27/25 03:51
Laboratory Results
PT 20.7 Sec (11.4-14.6) H 03/27/25 03:51
INR 1.73 03/27/25 03:51
Phosphorus 3.1 mg/dl (2.5-4.5) 03/26/25 05:20
Magnesium 1.5 mg/dl (1.6-2.3) L 03/27/25 03:51
Total Bilirubin 1.8 mg/dl (0.2-1.3) H 03/27/25 03:51
AST 5383 U/L (17-59) H* 03/27/25 03:51
ALT 983 U/L (0-50) H* 03/27/25 03:51
Alkaline Phosphatase 68 U/L (38-126) 03/27/25 03:51
Lipase 51 U/L (23-300) 03/25/25 20:16
Vital Signs and I&O:
Vital Signs
Temp Pulse Resp BP Pulse Ox
99.2 F 82 18 113/81 97
03/27/25 07:30 03/27/25 06:00 03/27/25 06:00 03/27/25 06:00 03/27/25 03:29
I&O
03/26/25 03/27/25 03/28/25
06:59 06:59 06:59
Intake Total 1240 / 1240 4725.5 / 4915.1 379.2 / 379.2
Output Total 400 / 400 2700 / 3400 700 / 700
Balance 840 / 840 2025.5 / 1515.1 -320.8 / -320.8
Physical Exam
Physical Exam
Cardiology: Normal Sinus Rhythm
Pulmonary: Clear
GI: Soft, Distended (Mildly distended), Non Tender and Normal Bowel Sounds
--- NOTE | 2025-03-27 09:58 | W.PN.HOSP.TC ---
Today's Communication/Plan
-
Follow LFTs and INR
Diet advanced
Assessment / Plan
Assessment / Plan
49-year-old male with alcohol use disorder presented for alcohol-related symptoms. Patient was confused and family brought him in
Per discussion with everything Started Monday, he was feeling dizzy and felt he was going to pass out. Not able to focus. Walking into the boggs. She brought him to the ER when she stepped out of the room patient told ER physician that he was
having
suicidal thoughts. He was seen by crisis where he was describing more of a passive wish rather than active suicidality. Patient preferred to pursue outpatient treatment he was offered resources. Alcohol level was 442 at that time. He was
discharged
Yesterday he called at work and said there was a aston in the apartment. She called 911. Police came and searched apt and there was no one there.
also states that he has not slept fot 3-4 days. Took Tylenol PM still didn't sleep.
[place] there were people in the room and stuff on the wall.
She Called PCP who told to take pt to ER
Patient drinks every day. Some days he drinks beers some days whiskey. stated that he started drinking at age 24. She is not able to quantify much but thinks is an 50 mL bottle of whiskey last 2 days.
When asked how much Tylenol he takes she stated that about 11 extra strength.
Colonoscopy July 2023-procedure aborted secondary to stool
Endoscopy July 2023-normal esophagus, stomach, duodenum
On examination patient is awake alert and able to answer questions.
He does not have any complaints
Cardiovascular system S1-S2 appreciated
Chest clear to auscultation
Abdomen soft and nontender
No pedal edema
Neuroexam is nonfocal
# Alcohol use disorder
Alcohol withdrawal syndrome
Started on phenobarbital taper
MSAS 2 this morning
Continue thiamine and folic acid
MSAS protocol with as needed Benzos
He needs to completely stop alcohol which I discussed with him today.
Consider inpatient rehab-case management consult
# Elevated LFTS
INR 1. 73
Possibly multifactorial, alcohol, Tylenol, possible ischemia related also.
No hypotension noted, Dopplers no thrombosis
Check hepatitis panel-pending, ammonia level less than 9
Completed Acetadote infusion
GI evaluation following
# Mental status change-confusion
Possible secondary to alcohol use disorder
Check head CT -no acute changes
Ammonia level less than 9
EEG results pending
Patient is awake alert and oriented today
# Thrombocytopenia-likely secondary to above
Progressive thrombocytopenia since 2022
states that since his admission in 2022 he had followed up with PCP and has platelet counts did normalize at 1 point.
Follow counts
# Mild hyponatremia-follow
# Hypomagnesemia-replace
# Chronic pancreatitis
# Hepatic steatosis
# DVT prophylaxis-SCDs
# Full code
Part of this note was created using voice recognition system. Occasional wrong word or��sound alike� substitutions may have inadvertently occurred due to the inherent limitations of voice recognition software. If noted kindly bring it to my
attention for correction.
Anticipated Discharge: > 48 hours
Subjective/Interval History
-
Date of Service: March 27, 2025
Objective Data
-
Labs:
Laboratory Results
03/27/25
03:51
WBC 2.8 L
Hgb 10.8 L
Hct 30.0 L
Plt Count 33 L
PT 20.7 H
INR 1.73
Sodium 132 L
Potassium 3.6
Chloride 104
Carbon Dioxide 24
BUN 9
Creatinine 1.0
Glucose 85
Calcium 8.4
Total Bilirubin 1.8 H
AST 5383 H*
ALT 983 H*
Alkaline Phosphatase 68
Vital Signs:
Vital Signs
Temp Pulse Resp BP Pulse Ox
99.2 F 82 18 113/81 97
03/27/25 07:30 03/27/25 06:00 03/27/25 06:00 03/27/25 06:00 03/27/25 03:29
I&O
03/26/25 03/27/25 03/28/25
06:59 06:59 06:59
Intake Total 1240 / 1240 4725.5 / 4915.1 504.2 / 504.2
Output Total 400 / 400 2700 / 3400 700 / 700
Balance 840 / 840 2025.5 / 1515.1 -195.8 / -195.8
[2025-03-27] MEDS: MAGNESIUM SULFATE 50 IV (10:04)
--- NOTE | 2025-03-27 10:41 | CM ---
Spoke with Tammy his and reviewed chart.Pt was born in [place] and grew up in [place] from child to present. He resides in [place] in an apartment with 13 steps to enter.He was independent prior to admission and he does drive. He does have a
history on alcohol hx. said he went to an in patient alcohol rehab 6 years ago . She is unsure of name .
Received a consult for in patient rehab.
Spoke with Jarett Kunz . Nichole Kunz will be working with pt on locating in patient rehab. Possible [facility].
CM will provide clinical as needed for discharge planning.
PCP: Dr Iona Reynaga
Pharmacy: [facility].
PLAN Inpatient alcohol rehab
--- NOTE | 2025-03-27 12:31 | PTCARENOTE ---
No changes. He opened his eyes to verbal and tactile stimuli. And instructed to order his lunch.
[2025-03-27] MEDS: NSS IV (12:44)
--- NOTE | 2025-03-27 12:53 | PTCARENOTE ---
Pt' informed he will be transferred to [place] [id number] and remain monitored due to magnesium replacement. She is also aware he is indecisive regarding rehab for alcohol abuse. Supportive care provided.
--- NOTE | 2025-03-27 13:30 | PTCARENOTE ---
Pt eating lunch. Tolerating so far. He was informed to notify staff if he experiences any nausea. He verbalized his understanding.
--- NOTE | 2025-03-27 14:31 | TRANSFER ---
Report called to 4th floor. Pt will be transferred with RN via W/C & telemetry.
--- NOTE | 2025-03-27 15:44 | PTCARENOTE ---
Received patient from ICU , oriented and appropriate conversation . MSAS 2. Denies any pain or discomfort at present . Gait slow and steady. Out of bed in chair , call riley in reach .
[2025-03-27 19:30] LABS: Hepatitis B Surface Antigen Negative (Negative)
[2025-03-27 19:49] LABS: Hepatitis A Antibody, Total Positive (Negative); Hepatitis B Core Ab, Total Negative (Negative); Hepatitis B Surface Antibody Negative; Hepatitis C Antibody Negative (Negative)
[2025-03-27 21:04] LABS: Hepatitis A IgM Antibody Negative (Negative)
[2025-03-28 03:23] VITALS: BP 113/80
--- NOTE | 2025-03-28 04:10 | PTCARENOTE ---
AAO x 3. VSS. NSR on telemetry. MSAS score 1-2. OOB independently. No bed alarm. Patient with mild lower back pain. No PRN pain medication adminsitered. All patient needs met. Bed in lowest position. Call riley and personal belongings within reach.
[2025-03-28 06:00] VITALS: BMI 19.3
[2025-03-28] MEDS: LUMINAL 64.8 MG PO ×3 (07:36→22:11)
[2025-03-28] MEDS: THIAMINE INJECTION 200 MG IV ×2 (07:36→22:11)
[2025-03-28] MEDS: NSS (PRESERVATIVE FREE) 10 ML IV (07:36)
[2025-03-28] MEDS: FOLVITE 1 MG PO (07:36)
[2025-03-28] MEDS: PROTONIX IV 40 MG IV (07:37)
[2025-03-28 07:59] VITALS: BP 127/92
[2025-03-28 08:18] LABS: INR 1.35; PT 16.9 Sec (11.4-14.6)
[2025-03-28 08:21] LABS: Hematocrit 27.4 % (39.0-52.0); Hemoglobin 9.9 g/dL (13.0-18.0); Mean Corp Hgb Conc. 36.1 g/dL (33.0-37.0); Mean Corpuscular Volume 94.2 fL (80.0-94.0); Mean Platelet Volume 11.4 fL (7.4-10.4); Platelet Count 58 10^3/uL (130-400); Red Blood Cell Count 2.91 10^6/uL (4.70-6.10); Red Cell Dist. Width 11.4 % (11.5-14.5); White Blood Cell Count 2.2 10^3/uL (4.8-10.8)
[2025-03-28 09:11] LABS: ALT (SGPT) 595 U/L (0-50); Albumin 3.3 g/dl (3.5-5.0); Alkaline Phosphatase 73 U/L (38-126); Blood Urea Nitrogen 5 mg/dl (9-20); Calcium 8.4 mg/dl (8.4-10.2); Carbon Dioxide 23 mmol/L (22-30); Chloride 108 mmol/L (98-107); Estimated Creatinine Clearance 88 ml/min; Glucose 90 mg/dl (70-99); Magnesium 1.8 mg/dl (1.6-2.3); Potassium 3.1 mmol/L (3.5-5.1); Sodium 136 mmol/L (135-145); Total Bilirubin 1.8 mg/dl (0.2-1.3); Total Protein 5.7 g/dl (6.3-8.2); eGFR > 60.00
[2025-03-28 09:21] LABS: AST (SGOT) 1253 U/L (17-59)
--- NOTE | 2025-03-28 10:25 | CM ---
Patient seen at bedside
RASTA Denson from [facility] [phone]- stated Nichole [phone] from [facility] will follow up with patient today
PLAN: Inpatient alcohol rehab
[2025-03-28] MEDS: KCL 40 MEQ PO (11:00)
[2025-03-28 11:22] VITALS: BP 144/86
--- NOTE | 2025-03-28 12:42 | W.PN.GI.CBS2 ---
Today's Communication / Plan
-
alcohol abstinence
Assessment / Plan
-
Pt is a 49yo with hx depression, ETOH abuse, pancreatitis, fatty liver, hemorrhoidectomy with admission to ER overnight with change in mental status. On admission labs noted with WBC 2.6, hbg 11.5, platelet 44,000, bili 2.4, AST 3616, ALT 494, alk
phos 100 with ammonia <9 and neg tox screen. Us with No evidence of cholelithiasis, gallbladder wall thickening or biliary tract dilatation. No focal hepatic abnormality. Pancreas, abdominal aorta, IVC and left kidney significantly obscured, at
least in part due to overlying bowel gas. Leading up to admission Pt had back injury at work and has not worked for 2 weeks. she admits to hx ETOH abuse with sobriety for some period but then recent increased use. Some day 3 beers and other daily
750ml bottle of hard ETOH consumed over 2 days. Pt was noted with ETOH level 246 on 03/24. reports pt was noted with dizziness several days ago. He was in ER 03/23 with concern for depression and suicidality with crisis eval with plan for Op
treatment. At that time salicylate level was <1 and pt was discharged. Per after discharged noted with hallucination and went to PCP then sent back to ER. also concerned in review on medication pt may have taken 11 500mg tablets of
Tylenol over 2 days. He was noted with continued confusion after admission and now transferred to ICU for further care.
-change in mental status with concern for ETOH withdrawal
-recent ingestion of increased Tylenol
-dizziness with marked elevated LFT's - possible shock liver
-coagulopathy
-thrombocytopenia with pancytopenia
-severe hypomagnesemia
-abdominal distention on exam
-recent suicidal evaluation in Crisis 03/23
-similar admission 2022 with ETOH withdrawal
-recent wt loss
other med problems:
-pancreatitis
-hemorrhoidectomy
-fatty liver
PLAN:
LFTS and PT markedly improved from yesterday
Etiology of confusion related to ETOH withdrawal and alcohol hepatitis with encephalopathy
Mentation is improved and he is at baseline
Advised strict alcohol abstinence and avoidance of acetominophen
will sign off call with questions
Subjective
Subjective
Date of Service: March 28, 2025
Pt feeling well now, no complaints
Objective
Data Reviewed
Laboratory Data:
Laboratory Results
03/28/25 06:18
03/28/25 06:18
Laboratory Results
PT 16.9 Sec (11.4-14.6) H 03/28/25 06:18
INR 1.35 03/28/25 06:18
Phosphorus 3.1 mg/dl (2.5-4.5) 03/26/25 05:20
Magnesium 1.8 mg/dl (1.6-2.3) 03/28/25 06:18
Total Bilirubin 1.8 mg/dl (0.2-1.3) H 03/28/25 06:18
AST 1253 U/L (17-59) H* 03/28/25 06:18
ALT 595 U/L (0-50) H* 03/28/25 06:18
Alkaline Phosphatase 73 U/L (38-126) 03/28/25 06:18
Lipase 51 U/L (23-300) 03/25/25 20:16
Vital Signs and I&O:
Vital Signs
Temp Pulse Resp BP Pulse Ox
98.2 F 91 16 144/86 98
03/28/25 11:22 03/28/25 11:22 03/28/25 11:22 03/28/25 11:22 03/28/25 11:22
I&O
03/27/25 03/28/25 03/29/25
06:59 06:59 06:59
Intake Total 4725.5 / 4915.1 1889.2 / 1889.2
Output Total 2700 / 3400 1550 / 1550
Balance 5 / 1514.1 339.2 / 339.2
Physical Exam
Physical Exam
HEENT: Anicteric
GI: Soft and Flat (mildly tender ruq)
--- NOTE | 2025-03-28 13:08 | W.PN.HOSP.TC ---
Today's Communication/Plan
-
Follow labs tomorrow as long as labs are better and improving patient can be discharged to inpatient rehab.
Discussed with case management.
Assessment / Plan
Assessment / Plan
49-year-old male with alcohol use disorder presented for alcohol-related symptoms. Patient was confused and family brought him in
Per discussion with everything Started Monday, he was feeling dizzy and felt he was going to pass out. Not able to focus. Walking into the boggs. She brought him to the ER when she stepped out of the room patient told ER physician that he was
having
suicidal thoughts. He was seen by crisis where he was describing more of a passive wish rather than active suicidality. Patient preferred to pursue outpatient treatment he was offered resources. Alcohol level was 442 at that time. He was
discharged
Yesterday he called at work and said there was a aston in the apartment. She called 911. Police came and searched apt and there was no one there.
also states that he has not slept fot 3-4 days prior to admission. Took Tylenol PM still didn't sleep.
[place] there were people in the room and stuff on the wall.
She Called PCP who told to take pt to ER
Patient drinks every day. Some days he drinks beers some days whiskey. stated that he started drinking at age 24. She is not able to quantify much but thinks is a 750 mL bottle of whiskey last 2 days.
When asked how much Tylenol he takes she stated that about 11 extra strength.
Colonoscopy July 2023-procedure aborted secondary to stool
Endoscopy July 2023-normal esophagus, stomach, duodenum
On examination patient is awake alert and able to answer questions.
He does not have any complaints
Cardiovascular system S1-S2 appreciated
Chest clear to auscultation
Abdomen soft and nontender
No pedal edema
Neuroexam is nonfocal
# Alcohol use disorder
Alcohol withdrawal syndrome
Started on phenobarbital taper
MSAS 2 this morning
Continue thiamine and folic acid
MSAS protocol with as needed Benzos
He needs to completely stop alcohol which I discussed with him
[facility] is setting up inpatient rehab for the patient
# Elevated LFTS
INR 1.35 TODAY
Possibly multifactorial, alcohol, Tylenol, possible ischemia related also.
No hypotension noted, Dopplers no thrombosis
Check hepatitis panel-noted. Patient has hepatitis A antibody but IgM is negative. He does not have hepatitis B antibody he needs vaccination for hepatitis B.
Ammonia level less than 9
Completed Acetadote infusion
GI signed off
# Mental status change-confusion AND WITHDRAWAL
Possible secondary to alcohol use disorder
Check head CT -no acute changes
Ammonia level less than 9
EEG normal
Patient is awake alert and oriented now
# Mild pancytopenia likely secondary to alcohol effects on the bone marrow
Thrombocytopenia-likely secondary to above
Progressive thrombocytopenia since 2022
states that since his admission in 2022 he had followed up with PCP and has platelet counts did normalize at 1 point.
Follow counts
Discussed with patient's that if it does not recover then he might need further workup but for the time being we will just watch it.
# Mild hyponatremia-resolved
# Hypomagnesemia-replaced
# Hypokalemia-replace
# Chronic pancreatitis
# Hepatic steatosis
# DVT prophylaxis-SCDs
# Full code
Discussed with nursing at bedside
Discussed with case management
Discussed with on the phone and updated. All questions answered
Part of this note was created using voice recognition system. Occasional wrong word or��sound alike� substitutions may have inadvertently occurred due to the inherent limitations of voice recognition software. If noted kindly bring it to my
attention for correction.
Anticipated Discharge: Within 24 hours
Subjective/Interval History
-
Date of Service: March 28, 2025
Objective Data
-
Labs:
Laboratory Results
06/06/25
06:18
WBC 2.2 L*
Hgb 9.9 L
Hct 27.4 L
Plt Count 58 L D
PT 16.9 H
INR 1.35
Sodium 136
Potassium 3.1 L
Chloride 108 H
Carbon Dioxide 23
BUN 5 L
Creatinine 1.0
Glucose 90
Calcium 8.4
Total Bilirubin 1.8 H
AST 1253 H*
ALT 595 H*
Alkaline Phosphatase 73
Vital Signs:
Vital Signs
Temp Pulse Resp BP Pulse Ox
98.2 F 91 16 144/86 98
03/28/25 11:22 03/28/25 11:22 03/28/25 11:22 03/28/25 11:22 03/28/25 11:22
I&O
03/27/25 03/28/25 03/29/25
06:59 06:59 06:59
Intake Total 4725.5 / 4915.1 1889.2 / 1889.2
Output Total 2700 / 3400 1550 / 1550
Balance 2025.5 / 1515.1 339.2 / 339.2
[2025-03-28] MEDS: MAGNESIUM OXIDE 500 MG PO (15:08)
[2025-03-28 15:39] VITALS: BP 99/65
--- NOTE | 2025-03-28 17:58 | PTCARENOTE ---
ABIGAIL met with pt and they agreed for tomorrow 03/29 to be transported to [facility]. Just waiting for transport which will be taken of by case management tomorrow.
[2025-03-28 19:26] VITALS: BP 114/80
[2025-03-28 23:33] VITALS: BP 114/76
[2025-03-29 03:05] VITALS: BP 116/80
[2025-03-29 06:00] VITALS: BMI 19.4
[2025-03-29 07:44] LABS: Hematocrit 28.4 % (39.0-52.0); Hemoglobin 9.9 g/dL (13.0-18.0); Mean Corp Hgb Conc. 34.9 g/dL (33.0-37.0); Mean Corpuscular Hgb 33.9 pg (27.0-31.0); Mean Corpuscular Volume 97.3 fL (80.0-94.0); Mean Platelet Volume 10.8 fL (7.4-10.4); Platelet Count 98 10^3/uL (130-400); Red Blood Cell Count 2.92 10^6/uL (4.70-6.10); Red Cell Dist. Width 11.6 % (11.5-14.5); White Blood Cell Count 2.6 10^3/uL (4.8-10.8)
[2025-03-29 07:50] VITALS: BP 127/87
[2025-03-29] MEDS: LUMINAL 64.8 MG PO (07:58)
[2025-03-29] MEDS: FOLVITE 1 MG PO (07:58)
[2025-03-29] MEDS: PROTONIX IV 40 MG IV (07:58)
[2025-03-29] MEDS: NSS (PRESERVATIVE FREE) 10 ML IV (07:58)
[2025-03-29] MEDS: MAGNESIUM OXIDE 500 MG PO (08:00)
[2025-03-29] MEDS: VITAMIN B1 100 MG PO ×3 (08:00→22:05)
[2025-03-29 08:08] LABS: Absolute Neutrophils -Man Diff 1.3 10^3/uL (1.4-6.5); Band Neutrophils 0 % (0-3); Eosinophils 6 % (0-6); Lymphocytes 25 % (20-51); Monocytes 16 % (2-9); Normal RBC Morphology Yes; Platelets Checked Yes; Segmented Neutrophils 53 % (42-75); Total Cells Counted 100
[2025-03-29 08:13] LABS: ALT (SGPT) 406 U/L (0-50); AST (SGOT) 421 U/L (17-59); Albumin 3.3 g/dl (3.5-5.0); Alkaline Phosphatase 71 U/L (38-126); Blood Urea Nitrogen 6 mg/dl (9-20); Calcium 8.4 mg/dl (8.4-10.2); Carbon Dioxide 22 mmol/L (22-30); Chloride 111 mmol/L (98-107); Estimated Creatinine Clearance 98 ml/min; Glucose 88 mg/dl (70-99); Potassium 3.7 mmol/L (3.5-5.1); Sodium 136 mmol/L (135-145); Total Bilirubin 1.1 mg/dl (0.2-1.3); Total Protein 5.7 g/dl (6.3-8.2); eGFR > 60.00
--- NOTE | 2025-03-29 09:03 | PTCARENOTE ---
Assumed care of pt from previous nurse. pt denies pain. MSAS dc'd per protocol. Pt is on tele running nsr. pt call riley is within reach, pt rings susan. will cont to monitor.
[2025-03-29 12:00] VITALS: BP 107/69
--- NOTE | 2025-03-29 13:42 | W.PN.HOSP.TC ---
Addendum entered and electronically signed by Sharmaine Ellison MD 03/29/25 13:55:
Rehab cannot accept until tomorrow after phen taper as done
Original Note:
Today's Communication/Plan
-
Discharge to rehab
Assessment / Plan
Assessment / Plan
49-year-old male with alcohol use disorder presented for alcohol-related symptoms. Patient was confused and family brought him in
Per discussion with everything Started Monday, he was feeling dizzy and felt he was going to pass out. Not able to focus. Walking into the boggs. She brought him to the ER when she stepped out of the room patient told ER physician that he was
having
suicidal thoughts. He was seen by crisis where he was describing more of a passive wish rather than active suicidality. Patient preferred to pursue outpatient treatment he was offered resources. Alcohol level was 442 at that time. He was
discharged
Yesterday he called at work and said there was a aston in the apartment. She called 911. Police came and searched apt and there was no one there.
also states that he has not slept fot 3-4 days prior to admission. Took Tylenol PM still didn't sleep.
[place] there were people in the room and stuff on the wall.
She Called PCP who told to take pt to ER
Patient drinks every day. Some days he drinks beers some days whiskey. stated that he started drinking at age 24. She is not able to quantify much but thinks is a 750 mL bottle of whiskey last 2 days.
When asked how much Tylenol he takes she stated that about 11 extra strength.
Colonoscopy July 2023-procedure aborted secondary to stool
Endoscopy July 2023-normal esophagus, stomach, duodenum
On examination patient is awake alert oriented
He does not have any complaints
Cardiovascular system S1-S2 appreciated
Chest clear to auscultation
Abdomen soft and nontender
No pedal edema
Neuroexam is nonfocal
# Alcohol use disorder
Alcohol withdrawal syndrome
Started on phenobarbital taper
MSAS 0 this morning
Continue thiamine and folic acid
MSAS protocol with as needed Benzos
He needs to completely stop alcohol which I discussed with him
[facility] is setting up inpatient rehab for the patient
# Elevated LFTS
INR 1.35
Possibly multifactorial, alcohol, Tylenol, possible ischemia related also.
No hypotension noted, Dopplers no thrombosis
Check hepatitis panel-noted. Patient has hepatitis A antibody but IgM is negative. He does not have hepatitis B antibody he needs vaccination for hepatitis B.
Ammonia level less than 9
Completed Acetadote infusion
GI signed off
# Mental status change-confusion AND WITHDRAWAL
Possible secondary to alcohol use disorder
Head CT -no acute changes
Ammonia level less than 9
EEG normal
Patient is awake alert and oriented now
# Mild pancytopenia likely secondary to alcohol effects on the bone marrow
Thrombocytopenia-likely secondary to above
Progressive thrombocytopenia since 2022
states that since his admission in 2022 he had followed up with PCP and has platelet counts did normalize at 1 point.
Counts improving
Rpt CBC in 1 week with Diff
# Mild hyponatremia-resolved
# Hypomagnesemia-replaced
# Hypokalemia-replace
# Chronic pancreatitis
# Hepatic steatosis
# DVT prophylaxis-Lovenox
# Full code
Discussed with nursing at bedside
Discussed with case management
Called , left message
Part of this note was created using voice recognition system. Occasional wrong word or��sound alike� substitutions may have inadvertently occurred due to the inherent limitations of voice recognition software. If noted kindly bring it to my
attention for correction.
Anticipated Discharge: Today
Subjective/Interval History
-
Date of Service: March 29, 2025
Objective Data
-
Labs:
Laboratory Results
03/29/25
06:50
WBC 2.6 L
Hgb 9.9 L
Hct 28.4 L
Plt Count 98 L D
Sodium 136
Potassium 3.7
Chloride 111 H
Carbon Dioxide 22
BUN 6 L
Creatinine 0.9
Glucose 88
Calcium 8.4
Total Bilirubin 1.1
AST 421 H
ALT 406 H
Alkaline Phosphatase 71
Vital Signs:
Vital Signs
Temp Pulse Resp BP Pulse Ox
98.1 F 70 16 107/69 96
03/29/25 12:00 03/29/25 12:00 03/29/25 12:00 03/29/25 12:00 03/29/25 12:00
I&O
03/28/25 03/29/25 03/30/25
06:59 06:59 06:59
Intake Total 1889.2 / 1889.2
Output Total 1550 / 1550
Balance 339.2 / 339.2
--- NOTE | 2025-03-29 13:50 | W.DS.TRANS ---
DC Summary - [facility]
-
Discharge Instructions:
Discharge Diagnosis/Procedures Alcohol use disorder
Alcohol withdrawal syndrome
Elevated transaminases
Pancytopenia secondary to alcohol use
Hyponatremia
Hypomagnesemia
Hypokalemia
Hepatic steatosis
Chronic pancreatitis
Diet As tolerated
Activity As tolerated
Driving Restrictions As prior to admission
Blood Work CBC with differential count in 1 week
CMP 1 week
Instructions:
Stand-Alone Forms:
Changes to Home Medications: Yes
Discharge Medications:
DC Medications w/original date entered in [employer]
folic acid 1 mg tablet 1 mg PO DAILY Supplement #0 tabs 03/29/25
magnesium oxide 500 mg PO DAILY Supplement #0 tabs 03/29/25
phenobarbital 32.4 mg tablet 32.4 mg PO TID alcohol #6 tabs 03/29/25
polyethylene glycol 3350 17 gram oral powder packet 17 g PO DAILY Constipation #0 ea 03/29/25
sennosides 8.6 mg tablet (Elaian-russ) 8.6 mg PO HS Constipation #0 tabs 03/29/25
thiamine mononitrate (vit B1) 100 mg tablet 100 mg PO BID Supplement #0 tabs 03/29/25
Home Medication Changes
all above new
Pending Results: No
--- NOTE | 2025-03-29 14:47 | CM ---
CM reviewed chart, patient seen bedside, reports he is agreeable to [facility] inpatient rehab, will transport. RASTA spoke with Jarett from [facility], updated clinicals faxed- per nurse at [facility], unable to accept patient until off
phenobarb taper which will be tonight at 10:00 p.m. Update to Hospitalist. Plan for discharge tomorrow to [facility], will review with ABIGAIL tomorrow.
Plan; [facility], likely tomorrow once completed pheno taper.
[2025-03-29] MEDS: MIRALAX PO (15:51)
[2025-03-29 16:04] VITALS: BP 122/71
[2025-03-29] MEDS: LUMINAL 32.4 MG PO ×2 (16:42→22:05)
[2025-03-29] MEDS: LOVENOX 40 MG SC (18:25)
[2025-03-29 23:11] VITALS: BP 124/73
[2025-03-30 06:00] VITALS: BMI 19.9
[2025-03-30 06:19] LABS: Hematocrit 29.4 % (39.0-52.0); Mean Corpuscular Hgb 33.7 pg (27.0-31.0); Platelet Count 120 10^3/uL (130-400); Red Blood Cell Count 2.97 10^6/uL (4.70-6.10); Red Cell Dist. Width 11.8 % (11.5-14.5); White Blood Cell Count 2.7 10^3/uL (4.8-10.8)
[2025-03-30 06:27] LABS: ALT (SGPT) 308 U/L (0-50); AST (SGOT) 171 U/L (17-59); Albumin 3.4 g/dl (3.5-5.0); Alkaline Phosphatase 66 U/L (38-126); Blood Urea Nitrogen 10 mg/dl (9-20); Calcium 8.7 mg/dl (8.4-10.2); Carbon Dioxide 23 mmol/L (22-30); Chloride 112 mmol/L (98-107); Estimated Creatinine Clearance 82 ml/min; Glucose 93 mg/dl (70-99); Magnesium 1.7 mg/dl (1.6-2.3); Potassium 4.4 mmol/L (3.5-5.1); Sodium 140 mmol/L (135-145); Total Bilirubin 0.6 mg/dl (0.2-1.3); Total Protein 5.9 g/dl (6.3-8.2); eGFR > 60.00
[2025-03-30 07:12] VITALS: BP 137/83
[2025-03-30] MEDS: NSS (PRESERVATIVE FREE) 10 ML IV (07:16)
[2025-03-30] MEDS: PROTONIX IV 40 MG IV (07:16)
[2025-03-30] MEDS: MAGNESIUM OXIDE 500 MG PO (07:17)
[2025-03-30] MEDS: MIRALAX 17 GRAMS PO (07:17)
[2025-03-30] MEDS: LUMINAL 32.4 MG PO (07:17)
[2025-03-30] MEDS: FOLVITE 1 MG PO (07:17)
[2025-03-30 10:28] LABS: Band Neutrophils 1 % (0-3); Lymphocytes 48 % (20-51); Monocytes 18 % (2-9); Normal RBC Morphology Yes; Platelets Checked Yes; Segmented Neutrophils 33 % (42-75); Total Cells Counted 100
[2025-03-30 10:31] LABS: Absolute Neutrophils -Man Diff 0.9 10^3/uL (1.4-6.5)
--- NOTE | 2025-03-30 12:07 | CM ---
Addendum entered by Rina Rivas 03/30/25 14:33:
CM spoke with Lorena at [facility] several times, Nurse Bayron also spoke with Lorena, confirmed ability to accept patient today. Patient and seen bedside, reports she was informed [facility] would be providing transport. CM
spoke with Jarett from [facility], will send Lyft for patient, scheduled for 4:15 p.m. CM confirmed patient's cell phone number. Update to Hospitalist.
Plan; [facility], facility will send Lyft 4:15 p.m.
[facility]
Original Note:
CM reviewed chart, spoke with Lorena from [facility], updated labs, MAR, and clinicals faxed to [phone]. Patient did receive Phenobarb this morning, Lorena reports typically they need patient off Pheno for 24 hours but will review with
her staff. RASTA discussed patient has been ready since yesterday and is eager for discharge, does not want patient to change mind and return home. Lorena will update CM with ability for acceptance.
Plan; [facility] today vs tomorrow
--- NOTE | 2025-03-30 14:29 | W.PN.HOSP.TC ---
Addendum entered and electronically signed by Sharmaine Ellison MD 03/30/25 14:53:
Dictation- [id number]
Original Note:
Today's Communication/Plan
-
Discharge
Assessment / Plan
Assessment / Plan
49-year-old male with alcohol use disorder presented for alcohol-related symptoms. Patient was confused and family brought him in
Per discussion with everything Started Monday, he was feeling dizzy and felt he was going to pass out. Not able to focus. Walking into the [place]. She brought him to the ER when she stepped out of the room patient told ER physician that he was
having
suicidal thoughts. He was seen by crisis where he was describing more of a passive wish rather than active suicidality. Patient preferred to pursue outpatient treatment he was offered resources. Alcohol level was 442 at that time. He was
discharged
Yesterday he called at work and said there was a aston in the apartment. She called 911. Police came and searched apt and there was no one there.
also states that he has not slept fot 3-4 days prior to admission. Took Tylenol PM still didn't sleep.
[place] there were people in the room and stuff on the wall.
She Called PCP who told to take pt to ER
Patient drinks every day. Some days he drinks beers some days whiskey. stated that he started drinking at age 24. She is not able to quantify much but thinks is a 750 mL bottle of whiskey last 2 days.
When asked how much Tylenol he takes she stated that about 11 extra strength.
Colonoscopy July 2023-procedure aborted secondary to stool
Endoscopy July 2023-normal esophagus, stomach, duodenum
On examination patient is awake alert oriented
He does not have any complaints
Cardiovascular system S1-S2 appreciated
Chest clear to auscultation
Abdomen soft and nontender
No pedal edema
Neuroexam is nonfocal
# Alcohol use disorder
Alcohol withdrawal syndrome
Completed phenobarbital taper
MSAS 0 this morning
Continue thiamine and folic acid
MSAS protocol with as needed Benzos
He needs to completely stop alcohol which I discussed with him
[facility] is setting up inpatient rehab for the patient .[facility] will take him today.
# Elevated LFTS
INR 1.35
Possibly multifactorial, alcohol, Tylenol, possible ischemia related also.
No hypotension noted, Dopplers no thrombosis
Check hepatitis panel-noted. Patient has hepatitis A antibody but IgM is negative. He does not have hepatitis B antibody he needs vaccination for hepatitis B. aware.
Ammonia level less than 9
Completed Acetadote infusion
GI signed off
# Mental status change-confusion AND WITHDRAWAL
Possible secondary to alcohol use disorder
Head CT -no acute changes
Ammonia level less than 9
EEG normal
Patient is awake alert and oriented now
# Mild pancytopenia likely secondary to alcohol effects on the bone marrow
Thrombocytopenia-likely secondary to above
Progressive thrombocytopenia since 2022
states that since his admission in 2022 he had followed up with PCP and has platelet counts did normalize at 1 point.
Counts improving
Rpt CBC in 1 week with Diff
# Mild hyponatremia-resolved
# Hypomagnesemia-replaced
# Hypokalemia-replaced
# Chronic pancreatitis
# Hepatic steatosis
# DVT prophylaxis-Lovenox
# Full code
Discussed with nursing at bedside
Discussed with case management
Called , and spoke to her
Discharge coordination time more than 30 minutes
Part of this note was created using voice recognition system. Occasional wrong word or��sound alike� substitutions may have inadvertently occurred due to the inherent limitations of voice recognition software. If noted kindly bring it to my
attention for correction.
Anticipated Discharge: Today
Subjective/Interval History
-
Date of Service: March 30, 2025
Objective Data
-
Labs:
Laboratory Results
03/30/25
05:04
WBC 2.7 L
Hgb 10.0 L
Hct 29.4 L
Plt Count 120 L D
Sodium 140
Potassium 4.4
Chloride 112 H
Carbon Dioxide 23
BUN 10
Creatinine 1.1
Glucose 93
Calcium 8.7
Total Bilirubin 0.6
AST 171 H
ALT 308 H
Alkaline Phosphatase 66
Vital Signs:
Vital Signs
Temp Pulse Resp BP Pulse Ox
98.4 F 75 18 137/83 99
03/30/25 07:12 03/30/25 07:12 03/30/25 07:12 03/30/25 07:12 03/30/25 08:00
I&O
03/29/25 03/30/25 03/31/25
06:59 06:59 06:59
Intake Total 1779
Balance 1779
[2025-03-30 14:39] VITALS: BP 128/74
[2025-03-30 15:08] VITALS: BP 132/88
== END 2025-03-30 16:01 | disposition other institution (70) | DRG 896 ==
LOC: 4 WEST ACU 02:16
PROVIDERS: Nurse Practitioner Adult Health; ADMITTING PHYSICIAN Hospitalist; ATTENDING PHYSICIAN Hospitalist; EMERGENCY PHYSICIAN Student in an Organized Health Care Education/Training Program; FAMILY PHYSICIAN Family Medicine; OTHER PHYSICIAN Internal Medicine Gastroenterology
DX: F10.132 Alcohol abuse with withdrawal with perceptual disturbance (principal); K72.00 Acute and subacute hepatic failure without coma; D61.818 Other pancytopenia; K86.1 Other chronic pancreatitis; D68.9 Coagulation defect, unspecified; Z68.1 Body mass index [BMI] 19.9 or less, adult; E87.1 Hypo-osmolality and hyponatremia; K56.7 Ileus, unspecified; F10.129 Alcohol abuse with intoxication, unspecified; K74.60 Unspecified cirrhosis of liver; K70.10 Alcoholic hepatitis without ascites; F32.A Depression, unspecified; D50.9 Iron deficiency anemia, unspecified; G31.2 Degeneration of nervous system due to alcohol; E87.6 Hypokalemia; K76.0 Fatty (change of) liver, not elsewhere classified; E83.42 Hypomagnesemia; R63.4 Abnormal weight loss
CPT/HCPCS: 70450; 74018; 76700; 80048; 80053; 80076; 80143; 80179; 80306; 81003; 81015; 82077; 82140; 82962; 83690; 83735; 84100; 84443; 85025; 85027; 85610; 86704; 86705; 86706; 86708; 86709; 86803; 87040; 87340; 93975; 95816; 96360; 96361; 99284; J0132; J7030